=== PATIENT | male | born 1970 | race Caucasian/White ===

== ENCOUNTER → 2018-05-31 | Outpatient (REF) | payer OTHER ==
[2018-05-31 18:55] LABS: APPEARANCE, URINE CLEAR (CLEAR); BACTERIA, URINE AUTO NEGATIVE (NEGATIVE); BILIRUBIN, URINE AUTO NEGATIVE (NEGATIVE); BLOOD, URINE BLOOD NEGATIVE (NEGATIVE); COLOR, URINE YELLOW (YELLOW); GLUCOSE, URINE (UA) AUTO NEGATIVE (NEGATIVE); KETONE, URINE AUTO NEGATIVE (NEGATIVE); LEUKOCYTE ESTERASE, URINE AUTO NEGATIVE (NEGATIVE); MUCUS, URINE SMALL (NEGATIVE); NITRITE, URINE AUTO NEGATIVE (NEGATIVE); PROTEIN, URINE AUTO NEGATIVE (NEGATIVE); RBC, URINE AUTO 0 /HPF (0-3); SQUAMOUS EPITHELIAL CELL UR AU 0 /HPF (0-6); UROBILINOGEN, URINE AUTO 0.2 mg/dL (0.0-2.0); WBC, URINE AUTO 1 /HPF (0-3)
== END ==
LOC: M SMT 17:08
DX: N20.0 Calculus of kidney (principal)

== ENCOUNTER → 2018-06-20 | Outpatient (REF) | payer OTHER ==
[2018-06-20 13:49] LABS: APPEARANCE, URINE CLEAR (CLEAR); BACTERIA, URINE AUTO NEGATIVE (NEGATIVE); BILIRUBIN, URINE AUTO NEGATIVE (NEGATIVE); BLOOD, URINE BLOOD NEGATIVE (NEGATIVE); COLOR, URINE STRAW (YELLOW); GLUCOSE, URINE (UA) AUTO NEGATIVE (NEGATIVE); KETONE, URINE AUTO NEGATIVE (NEGATIVE); LEUKOCYTE ESTERASE, URINE AUTO NEGATIVE (NEGATIVE); MUCUS, URINE SMALL (NEGATIVE); NITRITE, URINE AUTO NEGATIVE (NEGATIVE); PROTEIN, URINE AUTO NEGATIVE (NEGATIVE); RBC, URINE AUTO 0 /HPF (0-3); SPECIFIC GRAVITY URINE AUTO 1.004 (1.002-1.035); SQUAMOUS EPITHELIAL CELL UR AU 0 /HPF (0-6); UROBILINOGEN, URINE AUTO 0.2 mg/dL (0.0-2.0); WBC, URINE AUTO 0 /HPF (0-3)
== END ==
LOC: M SMT 13:13
DX: N20.0 Calculus of kidney (principal)

== ENCOUNTER → 2020-01-29 | Outpatient (CLI) | payer OTHER ==
[~2020-01-29] MED LIST: ATOR1TAB21 PO; SING4GRA PO
== END ==
LOC: M LABSMTC 09:37
PROVIDERS: ATTEND Anesthesiology
DX: Z01.818 Encounter for other preprocedural examination (principal); Z11.59 Encounter for screening for other viral diseases

== ENCOUNTER 2020-01-31 07:01 | Day surgery (SDC) | payer OTHER ==
[~2020-01-31] VITALS: Ht 172.7 cm; Wt 84.8 kg
[2020-01-31] MEDS ORDERED: NS 1,000 ML IV ONE (07:15)
[2020-01-31] MEDS ORDERED: LIDOCAINE 2% 100MG/5ML SDV (FOR ANES.) As Ordered ONE (07:38)
[2020-01-31] MEDS ORDERED: propofoL 500 MG/50 ML VIAL As Ordered ONE (07:38)
--- NOTE | 2020-01-31 07:58 | ROOR ---
Patient Name: Nicola Brown Procedure Date: 01/31/2020 7:34 AM Date of : 1970 Age: 49 Room: [facility] Gender: Male Note Status: Finalized Procedure: Total Colonoscopy to Cecum Indications: Screening for colorectal malignant neoplasm Providers: Connor Barron MD Referring MD: [facility], Admin. Requesting Provider: Medicines: Monitored Anesthesia Care Complications: No immediate complications. Procedure: Pre-Anesthesia Assessment: - The heart rate, respiratory rate, oxygen saturations, blood pressure, adequacy of pulmonary ventilation, and response to care were monitored throughout the procedure. The Colonoscope was introduced through the anus and advanced to the cecum, identified by appendiceal orifice and ileocecal valve. The colonoscopy was performed without difficulty. The patient tolerated the procedure well. The quality of the bowel preparation was excellent. Findings: The perianal and digital rectal examinations were normal. No other significant abnormalities were identified in a careful examination of the remainder of the colon. The exam was otherwise without abnormality on direct and retroflexion views. Impression: - The examination was otherwise normal on direct and retroflexion views. - No specimens collected. - The exam was otherwise normal to the cecum. Recommendation: - Patient has a contact number available for emergencies. The signs and symptoms of potential delayed complications were discussed with the patient. Return to normal activities tomorrow. Written discharge instructions were provided to the patient. - High fiber diet. - Discharge patient to home. - Continue present medications. - Repeat colonoscopy in 10 years for screening purposes. - Return to referring physician. - The findings and recommendations were discussed with the patient's family. Connor Barron MD Connor Barron MD 01/31/2020 7:58:49 AM Electronically signed by Connor Barron MD Number of Addenda: 0 Note Initiated On: 01/31/2020 7:34 AM Estimated Blood Loss: Estimated blood loss: none.
[2020-01-31 08:25] VITALS: BP 161/92
== END 2020-01-31 09:09 | disposition home or self-care (01) ==
LOC: M OPP 07:01
PROVIDERS: ATTEND Internal Medicine Gastroenterology
DX: Z12.11 Encounter for screening for malignant neoplasm of colon (principal); Z79.899 Other long term (current) drug therapy; Z88.5 Allergy status to narcotic agent; Z88.0 Allergy status to penicillin; Z87.891 Personal history of nicotine dependence

== ENCOUNTER 2020-06-02 12:07 | Emergency (ER) | payer OTHER ==
[~2020-06-02] VITALS: Ht 170.2 cm; Wt 85.7 kg
[2020-06-02] MEDS ORDERED: SYMB16INH INH (12:16)
[2020-06-02] MEDS ORDERED: KETOROLAC 30 MG/ML 1ML VIAL IV ONE (12:45)
[2020-06-02] MEDS ORDERED: ONDANSETRON 4MG/2ML VIAL IV ONE (12:45)
[2020-06-02] MEDS ORDERED: NS 1,000 ML IV ONE (12:45)
[2020-06-02 12:49] LABS: BASO % 0.7 % (0.0-1.0); HEMATOCRIT 47.6 % (42.0-52.0); HEMOGLOBIN 16.3 g/dl (13.5-17.5); LYMPH # 0.9 10^3/uL (1.5-5.0); LYMPH % 16.6 % (24.0-44.0); MEAN CORPUSCULAR HEMOGLOBIN 30.9 pg (27.0-33.0); MEAN CORPUSCULAR HGB CONC 34.2 g/dl (32.0-36.5); MEAN CORPUSCULAR VOLUME 90.2 fl (80.0-96.0); MONO # 0.8 10^3/uL (0.0-0.8); MONO % 13.9 % (0.0-5.0); NEUTROPHILS # 3.8 10^3/uL (1.5-8.5); NEUTROPHILS % 68.8 % (36.0-66.0); PLATELET COUNT, AUTOMATED 180 10^3/uL (150-450); RED BLOOD COUNT 5.28 10^6/uL (4.30-6.10); WHITE BLOOD COUNT 5.5 10^3/uL (4.0-10.0)
[2020-06-02 13:10] LABS: ALBUMIN 3.8 GM/DL (3.2-5.2); BILIRUBIN,DIRECT 0.2 MG/DL (0.0-0.2); BILIRUBIN,TOTAL 0.9 MG/DL (0.2-1.0); TOTAL PROTEIN 7.8 GM/DL (6.4-8.2)
--- NOTE | 2020-06-02 13:12 | REPVR ---
PROCEDURE INFORMATION: Exam: CT Abdomen And Pelvis Without Contrast Exam date and time: 06/02/2020 12:47 PM Age: 50 years old Clinical indication: Fever; Abdominal pain; Flank; Right; Additional info: Right flank pain, fevers, history of stone TECHNIQUE: Imaging protocol: Computed tomography of the abdomen and pelvis without contrast. Radiation optimization: All CT scans at this facility use at least one of these dose optimization techniques: automated exposure control; mA and/or kV adjustment per patient size (includes targeted exams where dose is matched to clinical indication); or iterative reconstruction. COMPARISON: No relevant prior studies available. FINDINGS: Detailed evaluation of the abdominal and pelvic viscera is somewhat limited in the absence of intravenous contrast. Lungs: Interstitial prominence and trace airspace disease. Liver: Fatty infiltration of the liver. Gallbladder and bile ducts: Cholelithiasis in the contracted gallbladder, and cystic duct calculus. Pancreas: No pancreatic mass or ductal dilatation. Spleen: Spleen upper limits of normal in size. Adrenals: Unremarkable adrenals. Kidneys and ureters: 1and 2 mm nonobstructing left renal calculi. Renal cysts, including a 10 mm cyst in the anterior left kidney. Stomach and bowel: Questionable wall thickening in the nondistended stomach. Mild small bowel dilatation without a transition zone. Prominent stool and diverticula, without pericolonic inflammation. Appendix: Appendix not visualized. Intraperitoneal space: No free fluid. Vasculature: Normal caliber of the abdominal aorta. Lymph nodes: Subcentimeter lymph nodes. Urinary bladder: Nondistended bladder. Reproductive: Unremarkable as visualized. Bones/joints: 8 mm bone island in the proximal right femur. Degenerative change and disc bulging. Soft tissues: Small fat containing umbilical and inguinal hernias. Calcification at the gluteal muscle attachment sites. IMPRESSION: 1. Cholelithiasis in the contracted gallbladder, and cystic duct calculus. 2. 1 and 2 mm nonobstructing left renal calculi. 3. Additional findings as described above. Electronically signed by: Darren Cardoso On 06/02/2020 13:11:35 PM
[2020-06-02] MEDS ORDERED: metroNIDAZOLE (FLAGYL) 500MG TABLET PO ONE (13:45)
[2020-06-02] MEDS ORDERED: CIPROFLOXACIN 500MG TABLET PO ONE (13:45)
[2020-06-02] MEDS ORDERED: CIPR-249 PO (13:50)
[2020-06-02] MEDS ORDERED: PROM25TA12 PO (13:50)
[2020-06-02] MEDS ORDERED: FLAG500T PO (13:50)
[2020-06-02 13:58] VITALS: BP 113/56
[2020-06-03] MEDS ORDERED: PERC5TAB12 PO (17:41)
== END 2020-06-02 14:00 | disposition home or self-care (01) ==
LOC: M ED 12:07
DX: K80.42 Calculus of bile duct with acute cholecystitis without obstruction (principal); N20.0 Calculus of kidney; M51.36 Other intervertebral disc degeneration, lumbar region; K43.9 Ventral hernia without obstruction or gangrene; K42.9 Umbilical hernia without obstruction or gangrene; J45.909 Unspecified asthma, uncomplicated; I10 Essential (primary) hypertension; E78.5 Hyperlipidemia, unspecified
CPT/HCPCS: 36415; 74176; 80076; 81001; 83690; 85025; 96361; 96374; 96375; 99284; J1885; J2405

== ENCOUNTER 2020-06-03 13:18 | Emergency (ER) | payer OTHER ==
[~2020-06-03] VITALS: Ht 170.2 cm; Wt 83.7 kg
[~2020-06-03 13:18] MED LIST changes: +CIPR-249 PO; +FLAG500T PO; +PROM25TA12 PO; +SYMB16INH INH
[2020-06-03] MEDS ORDERED: ONDANSETRON 4MG/2ML VIAL IV ONE (13:45)
[2020-06-03] MEDS: HYDROMORPHONE HCL 0.5 MG/ 0.5 ML SYRINGE (J1170 PER 1) IV PRN ×2 (14:11→15:15)
[2020-06-03] MEDS ORDERED: KETOROLAC 30 MG/ML 1ML VIAL IV ONE (14:15)
--- NOTE | 2020-06-03 14:43 | REPVR ---
PROCEDURE INFORMATION: Exam: US Abdomen, Limited; Right Upper Quadrant Exam date and time: 06/03/2020 2:17 PM Age: 50 years old Clinical indication: Abdominal pain; Additional info: Ruq pain; Further evaluate gallstones; ? Cholecystitis TECHNIQUE: Imaging protocol: US abdomen. Real time ultrasound with image documentation. Limited exam focused on the right upper quadrant. COMPARISON: CT ABD PELVIS W/O CONTRAST 06/02/2020 12:43 PM FINDINGS: Liver: Normal. No masses. Gallbladder: There is a large amount of sludge noted within the gallbladder. There is no pericholecystic fluid or gallbladder wall thickening. There is a small amount of suspected stones or gravel within the sludge. Common bile duct: Normal. No stones. No dilation. Pancreas: Pancreas cannot be seen due to overlying bowel gas. Right kidney: Normal. No mass. No hydronephrosis. IMPRESSION: Sludge in the gallbladder. There are few echogenic foci within the sludge questionably small stones or gravel. Electronically signed by: Oliver Webb On 06/03/2020 14:43:15 PM
[2020-06-03 14:47] LABS: BASO % 0.4 % (0.0-1.0); HEMATOCRIT 43.6 % (42.0-52.0); HEMOGLOBIN 14.9 g/dl (13.5-17.5); LYMPH # 0.6 10^3/uL (1.5-5.0); LYMPH % 11.2 % (24.0-44.0); MEAN CORPUSCULAR HEMOGLOBIN 30.2 pg (27.0-33.0); MEAN CORPUSCULAR HGB CONC 34.2 g/dl (32.0-36.5); MEAN CORPUSCULAR VOLUME 88.4 fl (80.0-96.0); MONO # 0.6 10^3/uL (0.0-0.8); MONO % 11.2 % (0.0-5.0); NEUTROPHILS # 4.3 10^3/uL (1.5-8.5); PLATELET COUNT, AUTOMATED 159 10^3/uL (150-450); RED BLOOD COUNT 4.93 10^6/uL (4.30-6.10); WHITE BLOOD COUNT 5.6 10^3/uL (4.0-10.0)
[2020-06-03 15:20] LABS: ALBUMIN 3.5 GM/DL (3.2-5.2); BILIRUBIN,DIRECT 0.3 MG/DL (0.0-0.2); BILIRUBIN,TOTAL 1.2 MG/DL (0.2-1.0); CALCIUM LEVEL 8.8 MG/DL (8.5-10.1); CREATININE FOR GFR 1.38 MG/DL (0.70-1.30); GLOMERULAR FILTRATION RATE 57.8 (>56); TOTAL PROTEIN 7.2 GM/DL (6.4-8.2)
[2020-06-03] MEDS ORDERED: NS 1,000 ML IV ONE (15:45)
[2020-06-03] MEDS ORDERED: PERC5TAB12 PO (17:41)
[2020-06-03 17:54] VITALS: BP 128/66
== END 2020-06-03 18:48 | disposition home or self-care (01) ==
LOC: M ED 13:18
DX: K80.50 Calculus of bile duct without cholangitis or cholecystitis without obstruction (principal); I10 Essential (primary) hypertension; E78.5 Hyperlipidemia, unspecified; Z87.442 Personal history of urinary calculi; J45.909 Unspecified asthma, uncomplicated
CPT/HCPCS: 36415; 76705; 80048; 80076; 81001; 83605; 83690; 85025; 87040; 87086; 96361; 96374; 96375; 99284; J1885; J2405

== ENCOUNTER → 2022-07-21 | Outpatient (CLI) | payer OTHER ==
[~2022-07-21] MED LIST changes: +MONT4GRA10 PO; +PERC5TAB12 PO; -SING4GRA PO
== END ==
LOC: M SLEEP 20:00
DX: G47.30 Sleep apnea, unspecified (principal)

== ENCOUNTER → 2024-12-18 | Outpatient (CLI) | payer OTHER | LOC: M PLAIMG 07:42 | PROVIDERS: ATTEND Physician Assistant Medical | DX: J32.9 Chronic sinusitis, unspecified (principal) ==

== ENCOUNTER → 2025-04-23 | Outpatient (CLI) | payer OTHER | LOC: M RAD 10:23 | PROVIDERS: ATTEND Orthopaedic Surgery | DX: M45.6 Ankylosing spondylitis lumbar region (principal); M47.896 Other spondylosis, lumbar region; Q76.49 Other congenital malformations of spine, not associated with scoliosis | CPT/HCPCS: 78306; A9503 ==